=== PATIENT | female | born 1975 | race African-American/Black ===

== ENCOUNTER → 2016-11-15 | Outpatient (CLI) | payer SELFPAY | END | disposition home or self-care (01) | LOC: CBAR 13:10 | DX: Z01.818 Encounter for other preprocedural examination (principal); E66.01 Morbid (severe) obesity due to excess calories | CPT/HCPCS: G0463 ==

== ENCOUNTER → 2016-12-28 | Outpatient (CLI) | payer SELFPAY | END | disposition home or self-care (01) | LOC: CBAR 12-21 06:35 | DX: Z01.818 Encounter for other preprocedural examination (principal); E66.01 Morbid (severe) obesity due to excess calories | CPT/HCPCS: G0463 ==

== ENCOUNTER → 2017-02-04 | Outpatient (CLI) | payer SELFPAY | END | disposition home or self-care (01) | LOC: CBAR 01-25 12:01 | DX: Z01.818 Encounter for other preprocedural examination (principal) | CPT/HCPCS: G0463 ==

== ENCOUNTER → 2017-03-11 | Outpatient (CLI) | payer SELFPAY | END | disposition home or self-care (01) | LOC: CBAR 03-04 15:44 | DX: Z01.818 Encounter for other preprocedural examination (principal); E66.01 Morbid (severe) obesity due to excess calories | CPT/HCPCS: G0463 ==